=== PATIENT | male | born 1955 | race Caucasian/White ===

== ENCOUNTER 2018-06-29 09:04 | Day surgery (SDC) | payer OTHER ==
[~2018-06-29 09:04] MED LIST: EPHEDrine SULFATE 50 MG/5 ML SYG
[2018-06-29 11:44] LABS: ADD MAN DIFF? NO
[2018-06-29 11:57] LABS: WHITE BLOOD COUNT 7.2 10^3/ul (4.8-10.8)
[2018-06-29 11:57] LABS: BASOPHIL # 0.1 10^3/ul (0.0-0.1); BASOPHILS % 0.8 % (0.0-2.0); EOSINOPHILS # 0.2 10^3/ul (0.0-0.5); EOSINOPHILS % 2.4 % (0.0-7.0); HEMATOCRIT 42.2 % (42.0-52.0); HEMOGLOBIN 14.1 g/dl (14.0-18.0); LYMPHOCYTES # 2.1 10^3/ul (0.8-2.9); LYMPHOCYTES % 29.6 % (15.0-51.0); MEAN CORPUSCULAR HEMOGLOBIN 29.3 pg (29.0-33.0); MEAN CORPUSCULAR HGB CONC 33.4 g/dl (32.0-37.0); MEAN CORPUSCULAR VOLUME 87.6 fl (82.0-101.0); MEAN PLATELET VOLUME 12.2 fl (7.4-10.4); MONOCYTE # 0.6 10^3/ul (0.3-0.9); MONOCYTES % 8.5 % (0.0-11.0); NEUTROPHIL # 4.2 10^3/ul (1.6-7.5); NEUTROPHILS % 58.3 % (39.0-77.0); PLATELET COUNT 201 10^3/UL (140-415); RED BLOOD COUNT 4.82 10^6/ul (4.70-6.10); RED CELL DISTRIBUTION WIDTH 13.7 % (11.5-14.5)
[2018-06-29 12:08] LABS: INR 0.92; PROTIME 12.4 Sec (11.9-14.9)
[2018-06-29 12:14] LABS: ALANINE AMINOTRANSFERASE 36 IU/L (13-69); ALBUMIN 4.5 g/dl (3.3-4.9); ALKALINE PHOSPHATASE 90 IU/L (42-121); ANION GAP 7 (5-13); ASPARTATE AMINO TRANSFERASE 25 IU/L (15-46); BILIRUBIN,INDIRECT 0.6 mg/dl (0-1.1); BILIRUBIN,TOTAL 0.6 mg/dl (0.2-1.3); BLOOD UREA NITROGEN 16 mg/dl (7-20); CALCIUM 9.7 mg/dl (8.4-10.2); CARBON DIOXIDE 30 mmol/L (21-31); CHLORIDE 105 mmol/L (97-110); CREATININE 0.95 mg/dl (0.61-1.24); Estimated GFR > 60 mL/min (>60); GLUCOSE 97 mg/dl (70-220); POTASSIUM 4.8 mmol/L (3.5-5.1); SODIUM 142 mmol/L (135-144); TOTAL PROTEIN 7.5 g/dl (6.1-8.1)
[2018-06-29 12:36] LABS: ADD UMIC NO; UR ASCORBIC ACID NEGATIVE (NEGATIVE); UR BILIRUBIN (Dip) NEGATIVE (NEGATIVE); UR BLOOD (Dip) NEGATIVE (NEGATIVE); UR CLARITY CLEAR (CLEAR); UR COLOR YELLOW (YELLOW); UR GLUCOSE (Dip) NEGATIVE (NEGATIVE); UR KETONES (Dip) NEGATIVE (NEGATIVE); UR LEUKOCYTE ESTERASE (Dip) NEGATIVE Leu/ul (NEGATIVE); UR NITRITE (Dip) NEGATIVE (NEGATIVE); UR SPECIFIC GRAVITY (Dip) 1.016 (1.003-1.030); UR TOTAL PROTEIN (Dip) NEGATIVE (NEGATIVE); UR UROBILINOGEN (Dip) NEGATIVE (NEGATIVE)
[2018-06-29] MEDS ORDERED: LIDOCAINE 2% (SDV) 5 ML INJ (13:21)
[2018-06-29] MEDS ORDERED: PROPOFOL 20 ML (13:21)
[2018-06-29] MEDS ORDERED: MIDAZOLAM 1 MG/ML 2 ML INJ (13:21)
[2018-06-29] MEDS ORDERED: ONDANSETRON 4 MG INJ (13:30)
[2018-06-29] MEDS ORDERED: DEXAMETHASONE 4 MG/ML 1 ML INJ (13:30)
[2018-06-29] MEDS ORDERED: CEFAZOLIN 1 GM INJ (13:30)
[2018-06-29] MEDS ORDERED: FAMOTIDINE 20 MG INJ (13:31)
[2018-06-29] MEDS ORDERED: FENTAnyl 50 MCG/ML VIAL (13:34)
[2018-06-29] MEDS: BUPIVACAINE 0.5% (SDV) 30 ML INJ (13:47)
[2018-06-29] MEDS ORDERED: EPHEDrine SULFATE 50 MG/5 ML SYG IV (14:00)
[2018-06-29] MEDS ORDERED: ONDANSETRON 4 MG INJ IV (14:00)
[2018-06-29] MEDS ORDERED: MEPERIDINE 25 MG INJ IV (14:00)
[2018-06-29] MEDS ORDERED: DIPHENHYDRAMINE 50 MG INJ IV (14:00)
[2018-06-29] MEDS ORDERED: hydrALAzine 20 MG INJ IV (14:00)
[2018-06-29] MEDS ORDERED: HYDROmorphONE 1 MG/5 ML IV SYRINGE IV (14:00)
[2018-06-29] MEDS ORDERED: FENTAnyl 50 MCG/ML VIAL IV (14:00)
[2018-06-29] MEDS ORDERED: PROCHLORPERAZINE 10 MG INJ IV (14:00)
[2018-06-29] MEDS: BACITRACIN/POLYMYXIN 28.35 GM OINT TOP (14:03)
[2018-06-29] MEDS ORDERED: HYDROmorphONE 2 MG/ML SYG (14:04)
[2018-06-29] MEDS ORDERED: HYDROCODONE/APAP (5/325) TAB PO (14:30)
== END 2018-06-29 16:00 | disposition home or self-care (01) ==
LOC: SDS 09:04
DX: L72.3 Sebaceous cyst (principal); I10 Essential (primary) hypertension; E03.9 Hypothyroidism, unspecified
CPT/HCPCS: 11426; 71045; 80053; 81003; 85025; 85610; 85730; 87070; 87075; 88304; 93005